=== PATIENT | female | born 1990 | race African-American/Black ===

== ENCOUNTER 2021-11-24 09:39 | Emergency (ER) | payer MEDICAID, OTHER ==
[~2021-11-24] VITALS: Ht 170.2 cm; Wt 97.1 kg
[2021-11-24 11:28] VITALS: BP 122/81
== END 2021-11-24 13:28 | disposition left against medical advice (07) ==
LOC: ER 09:39
DX: S16.1XXA Strain of muscle, fascia and tendon at neck level, initial encounter (principal); S29.012A Strain of muscle and tendon of back wall of thorax, initial encounter; J06.9 Acute upper respiratory infection, unspecified; Z20.822 Contact with and (suspected) exposure to COVID-19; V43.92XA Unspecified car occupant injured in collision with other type car in traffic accident, initial encounter; Y93.89 Activity, other specified; Y92.89 Other specified places as the place of occurrence of the external cause; Y99.8 Other external cause status
CPT/HCPCS: 36415; 71045; 87804

== ENCOUNTER 2023-11-06 14:03 | Emergency (ER) | payer MEDICAID ==
[~2023-11-06] VITALS: Ht 170.2 cm; Wt 98.3 kg
[2023-11-06 14:48] VITALS: BP 124/66; PULSE 109; RESP 17; TEMP 99.2; O2SAT 99
[2023-11-06] MEDS ORDERED: AZIT500T66 PO (14:56)
[2023-11-06] MEDS ORDERED: LIDO2SOL26 MT (14:56)
== END 2023-11-06 15:02 | disposition home or self-care (01) ==
LOC: ER 14:03
DX: J03.90 Acute tonsillitis, unspecified (principal); Z79.899 Other long term (current) drug therapy

== ENCOUNTER 2023-12-14 07:38 | Emergency (ER) | payer MEDICAID ==
[~2023-12-14] VITALS: Ht 170.2 cm; Wt 97.1 kg
[~2023-12-14 07:38] MED LIST: AZIT500T66 PO; LIDO2SOL26 MT
[2023-12-14 08:05] VITALS: BP 139/94; PULSE 94; RESP 18; TEMP 97.6; O2SAT 94
[2023-12-14 09:20] LABS: Basophils # (auto) 0 10 ^3/uL (0-0.2); Basophils % (auto) 0.6 % (0.0-2.0); Eosinophils # (auto) 0.2 10 ^3/uL (0-0.8); Hematocrit 29.7 % (36.0-46.0); Hemoglobin 9.7 g/dL (12.2-16.2); Lymphocytes # (auto) 1.1 10 ^3/uL (0.4-5.4); Lymphocytes % (auto) 21.1 % (10.0-50.0); Mean Corpuscular Hemoglobin 27.2 pg (28.0-32.0); Mean Corpuscular Hgb Conc. 32.7 g/dL (32.0-36.0); Mean Corpuscular Volume 83.2 fL (80.0-100.0); Monocytes # (auto) 0.2 10 ^3/uL (0-1.3); Monocytes % (auto) 4.7 % (0.0-12.0); Neutrophils # (auto) 3.5 10 ^3/uL (1.6-8.6); Neutrophils % (auto) 69.6 % (37.0-80.0); Red Blood Cells 3.57 10^6/uL (4.0-5.20); Red Cell Distribution Width 14.8 % (11.8-14.3); White Blood Cell 5.1 10^3/uL (4.4-10.8)
[2023-12-14 09:29] LABS: Chloride 112 mmol/L (98-107); Sodium 141 mmol/L (136-145)
[2023-12-14 09:30] LABS: Anion Gap 3 (5-15); Carbon Dioxide 26 mmol/L (20-30)
[2023-12-14 09:31] LABS: Calcium 9.1 mg/dL (8.5-10.1)
[2023-12-14 09:35] LABS: Glucose 86 mg/dL (74-106)
[2023-12-14 09:36] LABS: Blood Urea Nitrogen 9 mg/dL (9-23)
[2023-12-14] MEDS ORDERED: IBUP1TAB5 PO (09:42)
== END 2023-12-14 09:42 | disposition home or self-care (01) ==
LOC: ER 07:38
DX: M79.604 Pain in right leg (principal); M79.10 Myalgia, unspecified site
CPT/HCPCS: 36415; 80048; 85025